=== PATIENT | female | born 1970 | race Caucasian/White ===

== ENCOUNTER 2021-02-10 14:27 | Emergency (ER) | payer OTHER ==
[~2021-02-10] VITALS: Ht 157.5 cm; Wt 103.1 kg
[2021-02-10] MEDS ORDERED: KETOROLAC TROMETHAMINE 30 MG/ML VIAL ONE (14:59)
[2021-02-10] MEDS ORDERED: ONDANSETRON HCL INJ 2MG/ML 2ML 2 MG/ML VIAL ONE (14:59)
[2021-02-10] MEDS ORDERED: SODIUM CHLORIDE 0.9% 1000ML 1,000 ML ONE (14:59)
[2021-02-10] MEDS ORDERED: ONDANSETRON HCL INJ 2MG/ML 2ML 2 MG/ML VIAL IV STA (15:07)
[2021-02-10] MEDS ORDERED: KETOROLAC TROMETHAMINE 30 MG/ML VIAL IV STA (15:07)
[2021-02-10] MEDS ORDERED: SODIUM CHLORIDE 0.9% 1000ML 1,000 ML IV SCH (15:15)
[2021-02-10] MEDS ORDERED: DESVENLAFAXINE50 M1 (16:07)
[2021-02-10] MEDS ORDERED: FAMOTIDINE20 MG PO (16:07)
[2021-02-10] MEDS ORDERED: OMEPRAZOLE40 MG PO (16:07)
[2021-02-10] MEDS ORDERED: ONDANSETRON ODT4 MG PO (16:50)
[2021-02-10 16:51] VITALS: BP 147/78
[2021-02-10] MEDS ORDERED: TYLENOL # 31 EA PO (16:51)
== END 2021-02-10 16:55 | disposition home or self-care (01) ==
LOC: FSED 15:10
DX: M54.5 Low back pain (principal); N20.2 Calculus of kidney with calculus of ureter; K76.0 Fatty (change of) liver, not elsewhere classified
CPT/HCPCS: 74176; 80053; 81003; 81025; 85025; 96374; 96375; 99284; J1885; J2405; J7030